=== PATIENT | male | born 1990 | race African-American/Black ===

== ENCOUNTER 2017-02-21 21:47 | Emergency (ER) | payer SELFPAY ==
[~2017-02-21] VITALS: Ht 177.8 cm; Wt 79.4 kg
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
[2017-02-22] MEDS: DIPHTH,PERTUSS(ACELL),TET TOX 0.5 ML DISP.SYRIN. VAX IM ONE (01:35)
[2017-02-22] MEDS ORDERED: ONDANSETRON ODT 4 MG TAB.RAPDIS PO ONE (01:45)
[2017-02-22] MEDS ORDERED: HYDROcodone/APAP 5/325MG 1 TAB TABLET PO ONE (01:45)
[2017-02-22 01:53] VITALS: BP 128/68
[2017-02-22] MEDS ORDERED: HYDR-971 PO (02:01)
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
== END 2017-02-22 02:20 | disposition home or self-care (01) ==
LOC: ER 21:47 → EEVIPCON 21:47 → ER 02-22 02:20
DX: S06.0X0A Concussion without loss of consciousness, initial encounter (principal); S20.212A Contusion of left front wall of thorax, initial encounter; S20.211A Contusion of right front wall of thorax, initial encounter; S00.01XA Abrasion of scalp, initial encounter; Y04.0XXA Assault by unarmed brawl or fight, initial encounter; Y93.89 Activity, other specified; Y99.8 Other external cause status; Y92.009 Unspecified place in unspecified non-institutional (private) residence as the place of occurrence of the external cause
CPT/HCPCS: 70450; 71111; 72125; 99284; Q0162; 90715